=== PATIENT | male | born 1960 | race Caucasian/White ===

== ENCOUNTER → 2024-07-20 10:59 | Outpatient (CLI) | payer MEDICARE, OTHER, SELFPAY ==
--- NOTE | 2024-07-20 11:02 | DI.RAD.S_ITS ---
PROCEDURE: XR HIP W PEL RT 2V INDICATIONS: HIP PAIN TECHNIQUE: 2 views of the right hip were acquired. COMPARISON: None. FINDINGS: Moderate to severe degenerative changes of the right hip with joint space narrowing, osteophytes, sclerotic changes of the superior acetabulum and flattening, remodeling of the right femoral head. Moderate degenerative changes of the left hip. Lobulated 2 cm sclerotic density projected at the level of the left sacral wing which is nonspecific may represent sclerotic sacral lesion which rarely may include metastasis however soft tissue calcification, calcified lymph node or other calcification could have this appearance. If indicated CT could be performed for further evaluation. Moderate degenerative changes lower lumbar spine partially imaged. No radiographic evidence of displaced fracture line, dislocation or high attenuation soft tissue foreign body. IMPRESSION: Degenerative changes as discussed above. 2 cm sclerotic density projects at the left sacral wing as discussed above. If symptoms persist or worsen, or there is high clinical suspicion of pelvic/hip abnormality, CT or MRI could be performed Dictated by: Bharat Gray M.D. on 07/22/2024 at 18:51 Approved by: Bharat Gray M.D. on 07/22/2024 at 18:56
== END ==
PROVIDERS: PCP Family Medicine; Referring Provider Family Medicine; Visit Provider Family Medicine
DX: M25.551 Pain in right hip (principal)
CPT/HCPCS: 73502